=== PATIENT | female | born 1950 | race Caucasian/White ===

== ENCOUNTER 2017-09-23 18:44 | Observation (INO) | payer OTHER ==
[~2017-09-23] VITALS: Ht 157.5 cm; Wt 81.8 kg
[~2017-09-23 18:44] MED LIST: ALEVE220 MG PO; ASCORBIC ACID500 M3 PO; ELAVIL10 MG PO; HYDROCODON-ACE1 EAC7 PO; SELENIUM200 MC3 PO; ULTRAM50 MG PO
[2017-09-23 19:22] LABS: HEMATOCRIT 42.4 % (36.0-46.0); MCH 30.4 PG (29.0-34.0); MCV 89.5 FL (83-99); MEAN PLAT.VOLUME 9.8 uM^3 (9.5-12.4); PLATELET COUNT 267 K/uL (156-360); RBC DIS.WIDTH-CV 12.9 % (11.8-14.6); RBC DIS.WIDTH-SD 42.5 % (39-53); RED BLOOD COUNT 4.74 M/uL (3.80-5.20); WHITE BLOOD COUNT 5.4 K/uL (4.1-10.2)
[2017-09-23 19:34] LABS: CHLORIDE 107 mEq/L (99-109); POTASSIUM 3.8 mEq/L (3.7-5.4); SODIUM 143 mEq/L (136-147)
[2017-09-23 19:36] LABS: GLUCOSE 119 mg/dL (70-99)
[2017-09-23 19:37] LABS: ANION GAP 9 MEQ/L (2-14)
[2017-09-23 19:40] LABS: GFR ESTIMATE (CALCULATED) > 59 mL/min/
[2017-09-23 19:41] LABS: UREA NITROGEN (BUN) 15 mg/dL (9-23)
[2017-09-23 19:44] LABS: TROP-I INTERPRETATION NEGATIVE; TROPONIN-I < 0.01 ng/mL (0.0-0.30)
[2017-09-23] MEDS ORDERED: [UNRECOGNIZED DRUG - OTHER] PO (20:21)
[2017-09-23] MEDS ORDERED: BACLOFEN10 MG PO (20:21)
[2017-09-23] MEDS ORDERED: DAILY VALUE1 EACH PO (20:21)
[2017-09-23] MEDS ORDERED: FLAX OIL1000 MG PO (20:22)
[2017-09-24 01:19] LABS: TROP-I INTERPRETATION NEGATIVE; TROPONIN-I < 0.01 ng/mL (0.0-0.30)
[2017-09-24 02:41] VITALS: BP 118/66
[2017-09-24 04:50] LABS: HEMATOCRIT 39.8 % (36.0-46.0); MCH 29.9 PG (29.0-34.0); MCHC 33.4 G/DL (30.0-36.0); MCV 89.4 FL (83-99); PLATELET COUNT 219 K/uL (156-360); RBC DIS.WIDTH-SD 42.7 % (39-53); RED BLOOD COUNT 4.45 M/uL (3.80-5.20); WHITE BLOOD COUNT 4.8 K/uL (4.1-10.2)
[2017-09-24 05:10] LABS: CHLORIDE 113 mEq/L (99-109); POTASSIUM 4.4 mEq/L (3.7-5.4); SODIUM 144 mEq/L (136-147)
[2017-09-24 05:11] LABS: GLUCOSE 96 mg/dL (70-99)
[2017-09-24 05:13] LABS: ANION GAP 9 MEQ/L (2-14)
[2017-09-24 05:15] LABS: GFR ESTIMATE (CALCULATED) > 59 mL/min/
[2017-09-24 05:16] LABS: UREA NITROGEN (BUN) 16 mg/dL (9-23)
[2017-09-24 05:19] LABS: TROP-I INTERPRETATION NEGATIVE; TROPONIN-I 0.01 ng/mL (0.0-0.30)
[2017-09-24 05:48] LABS: HDL CHOLESTEROL 37 MG/DL (Desirable>=50); LDL CHOLESTEROL 129 mg/dL (Desirable<100); NON-HDL CHOLESTEROL 178 mg/dL (Desirable<160); SAMPLE HEMOLYSIS CHECK 1; SAMPLE ICTERIC CHECK 0; SAMPLE LIPEMIA CHECK 0; TOTAL CHOLESTEROL 215 mg/dL (Desirable<200); TRIGLYCERIDES 244 MG/DL (Normal: <150)
[2017-09-24 07:17] VITALS: BP 118/68
[2017-09-24] MEDS ORDERED: FAMOTIDINE20 MG PO (11:40)
[2017-09-24] MEDS ORDERED: ASPIRIN EC325 MG PO (11:40)
[2017-09-24 12:00] VITALS: BP 120/68
== END 2017-09-24 14:25 | disposition home or self-care (01) ==
LOC: EME 18:44 → EDOF 22:41 → 5WEST 22:41 → EDOF 22:41 → ENRESERV 22:48 → 5WEST 09-24 00:19
PROVIDERS: Hospitalist
DX: R07.9 Chest pain, unspecified (principal); R06.09 Other forms of dyspnea; M79.601 Pain in right arm; E78.5 Hyperlipidemia, unspecified; M79.7 Fibromyalgia; Z85.3 Personal history of malignant neoplasm of breast; Z82.49 Family history of ischemic heart disease and other diseases of the circulatory system; Z79.82 Long term (current) use of aspirin; J45.20 Mild intermittent asthma, uncomplicated; M19.90 Unspecified osteoarthritis, unspecified site; M54.5 Low back pain; Z90.710 Acquired absence of both cervix and uterus; Z90.49 Acquired absence of other specified parts of digestive tract; Z83.3 Family history of diabetes mellitus; Z88.8 Allergy status to other drugs, medicaments and biological substances; Z91.018 Allergy to other foods; Z88.2 Allergy status to sulfonamides; Z88.0 Allergy status to penicillin
CPT/HCPCS: 71020; 71275; 80048; 80061; 84484; 85027; 85379; 93005; 99281; 99285; G0378; J1650